=== PATIENT | female | born 1935 | race Caucasian/White ===

== ENCOUNTER 2016-12-07 15:55 | Inpatient (IN) | payer OTHER ==
[~2016-12-07] VITALS: Ht 152.4 cm; Wt 73.5 kg
[~2016-12-07 15:55] MED LIST: AMLODIPINE BESY10 MG PO; CEFTIN500 MG PO; CELEXA PO; CELEXA20 MG PO; HYDROCODON-ACE1 EAC7 PO; KEFLEX500 MG PO; NORCO 5/3251 TABLET PO; OXYCONTIN10 MG PO
[2016-12-07 17:06] LABS: MCH 29.9 PG (29.0-34.0); MCHC 31.4 G/DL (30.0-36.0); MCV 95.1 FL (83-99); MEAN PLAT.VOLUME 11.5 uM^3 (9.5-12.4); PLATELET COUNT 341 K/uL (156-360); RBC DIS.WIDTH-CV 16.1 % (11.8-14.6); RBC DIS.WIDTH-SD 56.1 % (39-53); RED BLOOD COUNT 3.68 M/uL (3.80-5.20); WHITE BLOOD COUNT 10.8 K/uL (4.1-10.2)
[2016-12-07 17:22] LABS: CHLORIDE 104 mEq/L (99-109); POTASSIUM 5.1 mEq/L (3.7-5.4); SODIUM 141 mEq/L (136-147)
[2016-12-07 17:24] LABS: GLUCOSE 95 mg/dL (70-99)
[2016-12-07 17:25] LABS: ANION GAP 11 MEQ/L (2-14)
[2016-12-07 17:26] LABS: TOTAL BILIRUBIN 0.2 mg/dL (0.0-1.0)
[2016-12-07 17:27] LABS: ALKALINE PHOSPHATASE 54 IU/L (3-129)
[2016-12-07 17:28] LABS: GFR ESTIMATE (CALCULATED) 25 mL/min/
[2016-12-07 17:29] LABS: UREA NITROGEN (BUN) 29 mg/dL (9-23)
[2016-12-07] MEDS ORDERED: CALCIUM 500 MG1 EAC2 PO (19:26)
[2016-12-07] MEDS ORDERED: AMLODIPINE BESYL5 MG PO (19:26)
[2016-12-07] MEDS ORDERED: CRANBERRY425 MG PO (19:26)
[2016-12-07] MEDS ORDERED: DEPAKOTE125 MG PO (19:27)
[2016-12-07] MEDS ORDERED: IRON325 M1 PO (19:27)
[2016-12-07] MEDS ORDERED: FUROSEMIDE20 MG PO (19:27)
[2016-12-07] MEDS ORDERED: OXYCONTIN10 MG PO (19:27)
[2016-12-07] MEDS ORDERED: BACTRIM,SEPT1 TABLE1 PO (19:28)
[2016-12-07] MEDS ORDERED: TYLENOL REGULA325 MG PO (19:28)
[2016-12-07] MEDS ORDERED: TRAZODONE HCL50 MG PO (19:28)
[2016-12-07 21:01] VITALS: BP 133/69
[2016-12-07 23:07] VITALS: BP 116/58
[2016-12-08 03:07] VITALS: BP 111/57
[2016-12-08 07:30] VITALS: BP 130/68
[2016-12-08 11:35] VITALS: BP 108/54
[2016-12-08 16:40] VITALS: BP 128/66
[2016-12-08 23:14] VITALS: BP 135/67
[2016-12-09 10:13] LABS: ADD MIUA? YES; BILIRUBIN NEGATIVE; BLOOD SMALL; COLOR STRAW ((YELLOW)); GLUCOSE (STRIP) NEGATIVE; KETONES NEGATIVE; LEUKOCYTES LARGE; NITRITE NEGATIVE; PROTEIN (STRIP) NEGATIVE; SPECIFIC GRAVITY 1.006 (1.000-1.030); UROBILINOGEN 0.2 MG/DL (0.2-1.0)
[2016-12-09 10:44] LABS: BACTERIA RARE /HPF; EPITHELIAL CELLS NONE SEEN /HPF; MUCUS NONE SEEN /LPF; RED BLOOD CELLS 15-20 /HPF (0-5); UCUL ADDED? YES; WHITE BLOOD CELLS TNTC /HPF (0-5); WHITE BLOOD CELLS CLUMP OCC /HPF (0-5)
[2016-12-09 15:00] VITALS: BP 118/76
[2016-12-10 00:15] VITALS: BP 138/79
[2016-12-10 07:11] VITALS: BP 118/68
[2016-12-10 07:21] LABS: BASOPHIL COUNT 0.1 K/uL (0-0.1); EOSINOPHIL (%) 7.6 % (0-5); EOSINOPHIL COUNT 0.7 K/uL (0-0.3); HEMATOCRIT 36.8 % (36.0-46.0); IMMATURE GRANULOCYTE (%) 0.8 % (0.0-0.7); IMMATURE GRANULOCYTE COUNT 0.1 K/uL; INSTRUMENT ABS NEUTROPHIL CT 6.5 K/uL; LYMPHOCYTE COUNT 0.8 K/uL (1.0-2.8); MCHC 31.8 G/DL (30.0-36.0); MCV 97.4 FL (83-99); MEAN PLAT.VOLUME 12.3 uM^3 (9.5-12.4); MONOCYTE (%) 7.3 % (3-12); MONOCYTE COUNT 0.6 K/uL (0-0.8); NEUTROPHIL (%) 74.7 % (45-76); NEUTROPHIL COUNT 6.5 K/uL (1.8-6.4); PLATELET COUNT 281 K/uL (156-360); RBC DIS.WIDTH-CV 16.4 % (11.8-14.6); RBC DIS.WIDTH-SD 58.5 % (39-53); RED BLOOD COUNT 3.78 M/uL (3.80-5.20); WHITE BLOOD COUNT 8.7 K/uL (4.1-10.2)
[2016-12-10 07:43] LABS: ANION GAP 11 MEQ/L (2-14); CHLORIDE 104 MEQ/L (99-109); GLUCOSE 89 mg/dL (70-99); SAMPLE HEMOLYSIS CHECK 0; SAMPLE ICTERIC CHECK 0; SAMPLE LIPEMIA CHECK 0; SODIUM 143 MEQ/L (136-147); UREA NITROGEN (BUN) 15 mg/dL (9-23)
[2016-12-10 07:46] LABS: GFR ESTIMATE (CALCULATED) 46 mL/min/; POTASSIUM 3.9 MEQ/L (3.7-5.4)
[2016-12-10] MEDS ORDERED: KENALOG,ARISTOC80 G1 TP (12:10)
[2016-12-10] MEDS ORDERED: Tums,OsCal PO (12:10)
== END 2016-12-10 15:24 | disposition home or self-care (01) | DRG 684 ==
LOC: EME 15:55 → EDOF 19:30 → 2EAST 19:30
PROVIDERS: Internal Medicine; Internal Medicine Infectious Disease; Nurse Practitioner Family
DX: N17.9 Acute kidney failure, unspecified (principal); T37.0X5A Adverse effect of sulfonamides, initial encounter; L27.0 Generalized skin eruption due to drugs and medicaments taken internally; F03.90 Unspecified dementia, unspecified severity, without behavioral disturbance, psychotic disturbance, mood disturbance, and anxiety; E66.9 Obesity, unspecified; Z68.31 Body mass index [BMI] 31.0-31.9, adult; E03.9 Hypothyroidism, unspecified; F41.9 Anxiety disorder, unspecified; F32.9 Major depressive disorder, single episode, unspecified; I10 Essential (primary) hypertension; Z87.440 Personal history of urinary (tract) infections; G89.4 Chronic pain syndrome
CPT/HCPCS: 80048; 80053; 81003; 85025; 85027; 87086; 93970; 99281; 99285; J1200; J1630; J1644; J2060; J3370; J7030; Q0177

== ENCOUNTER → 2017-08-28 | Outpatient (CLI) | payer OTHER ==
[~2017-08-28] MED LIST changes: +AMLODIPINE BESYL5 MG PO; +BACTRIM,SEPT1 TABLE1 PO; +CALCIUM 500 MG1 EAC2 PO; +CRANBERRY425 MG PO; +DEPAKOTE125 MG PO; +FUROSEMIDE20 MG PO; +IRON325 M1 PO; +KENALOG,ARISTOC80 G1 TP; +TRAZODONE HCL50 MG PO; +TYLENOL REGULA325 MG PO; +Tums,OsCal PO
== END | disposition home or self-care (01) ==
DX: R13.12 Dysphagia, oropharyngeal phase (principal); R05 Cough
CPT/HCPCS: 92611 GN; G8996 GN CI; G8997 GN CI; G8998 GN CI